=== PATIENT | female | born 1960 | race Caucasian/White ===

== ENCOUNTER 2019-06-09 05:11 | Inpatient (IN) ==
--- NOTE | 2019-05-26 13:52 | PAT Medication Instructions ---
Medication Instructions Date of Service May 26, 2019 Home Medications acetaminophen [Tylenol Arthritis Pain] 1,300 mg PO BID calcium carbonate [Tums] 200 mg PO UD PRN diphenhydramine-acetaminophen [Tylenol PM Extra Strength] 1 tab PO HS PRN ibuprofen 200 - 600 mg PO UD PRN meloxicam [Mobic] 7.5 mg PO DAILY ASK your surgeon for instructions ibuprofen 200 - 600 mg PO UD PRN meloxicam [Mobic] 7.5 mg PO DAILY DO NOT take the morning of surgery calcium carbonate [Tums] 200 mg PO UD PRN Take morning of surgery With a small sip of water, OTHERWISE NOTHING TO EAT OR DRINK AFTER MIDNIGHT: acetaminophen [Tylenol Arthritis Pain] 1,300 mg PO BID (if needed, may be taken up to four hours before surgery) Take evening before surgery acetaminophen [Tylenol Arthritis Pain] 1,300 mg PO BID calcium carbonate [Tums] 200 mg PO UD PRN (if needed) diphenhydramine-acetaminophen [Tylenol PM Extra Strength] 1 tab PO HS PRN (if needed) Other Notes If you have any questions please call us at [phone] or [phone] or [phone] or [phone]
--- NOTE | 2019-05-27 12:46 | Anesthesiology Consultation ---
Date of Service May 27, 2019 Assessment & Plan (1) Encounter for pre-operative examination: Chart Review Chart Review: Acceptable Risk for Surgery (pending surgeon-ordered PCP clearance) and Patient seen in Pre Admission Testing Teaching & Discussion Instructed NPO after midnight before surgery, except medications with 15 cc of water. Medication instructions provided according to the PAT guidelines. History Surgery Operation Date: 06/09/19 11:25 Proposed Procedures p Right Anterior Total Hip Arthroplasty - Ori Pittman DO Height/Weight Height: 5 ft 4 in Weight: 48.8 kg Allergies Allergy/AdvReac Type Severity Reaction Status Date / Time No Known Allergies Allergy Verified 05/21/19 11:03 Medications Home Medications Medication Instructions Recorded Confirmed Last Taken acetaminophen [Tylenol Arthritis 1,300 mg PO BID 05/21/19 05/21/19 Unknown Pain] calcium carbonate [Tums] 200 mg PO UD PRN 05/21/19 05/21/19 Unknown diphenhydramine-acetaminophen 1 tab PO HS PRN 05/21/19 05/21/19 Unknown [Tylenol PM Extra Strength] ibuprofen 200 - 600 mg PO UD PRN 05/21/19 05/21/19 Unknown meloxicam [Mobic] 7.5 mg PO DAILY 05/21/19 05/21/19 Unknown Past Medical History Medical History Arthritis Heartburn OCC, 3X PER MONTH AVERAGE, TUMS PRN History of bursitis R HIP History of kidney stones X1 EPISODE/PASSED ON OWN Nausea and vomiting after administration of anesthetic agent Exercise / Class Metabolic Activity II 4-5 Yardwork/Stairs/Walk up hill (Denies CP or SOB with 1 FOS, does daily at home) Past Family History Family History Daughter Family history of thyroid cancer Past Surgical History Surgical History History of dilation and curettage History of hernia surgery X2 History of microdiscectomy L4 History of tonsillectomy Past Anesthesia History No Hx of Anesthesia Complications and No Family Hx of Anesthesia Complications History of PONV History of PONV (with lumbar discectomy and D+C) and Hx of Motion Sickness Social History Smoking Status: Current every day smoker tobacco type: cigarettes Smoking cigarettes per day: LESS THAN 1 PPD/ ADVISED NPO Do You Dip or Chew Tobacco: No Hx Alcohol Use: No Hx Substance Use: No substance use type: does not use Review of Systems Pt denies any recent chest pain, shortness of breath, palpitations, cough, fever or URI. Physical Exam Vital Signs BP: 109/77 P: 81bpm SPO2: 95% RA T: 97.9 F R: 16 ENMT Mouth: no dental restorations, no chipped teeth and no loose teeth Thyromental Distance: > or= 3.5 Finger Breadths (3.5) Mallampati Class: I Neck normal visual inspection; neck extension not limited Respiratory normal respiratory effort Auscultation: lungs clear to auscultation bilaterally and + diminished lung sounds (Slightly, B/L) Cardiovascular Rate/Rhythm: regular rate and regular rhythm Heart Sounds: no murmur Vessels: no carotid bruit Testing Laboratory Results 05/27/19 12:56 05/27/19 12:56 PT 10.1 Seconds (9.0-12.0) 05/27/19 12:56 INR 1.0 (0.9-1.1) 05/27/19 12:56 APTT 27.8 Seconds (21.0-31.0) 05/27/19 12:56 Hemoglobin A1c 5.5 % (4.5-5.6) 05/27/19 12:56 Urine Color Yellow 05/27/19 12:56 Urine Appearance Clear (Clear) 05/27/19 12:56 Urine pH 5.0 (4.5-7.5) 05/27/19 12:56 Ur Specific Lyman 1.017 (1.000-1.030) 05/27/19 12:56 Urine Protein Negative (Negative) 05/27/19 12:56 Urine Glucose (UA) Negative (Negative) 05/27/19 12:56 Urine Ketones Trace (Negative) H 05/27/19 12:56 Urine Nitrite Negative (Negative) 05/27/19 12:56 Ur Leukocyte Esterase Negative (Negative) 05/27/19 12:56 Urine WBC (Auto) 0 /hpf (0-5) 05/27/19 12:56 Urine RBC (Auto) 0-4 /hpf (0-4) 05/27/19 12:56 U Hyaline Cast (Auto) 0 /lpf (0-5) 05/27/19 12:56 U Epithel Cells (Auto) 0-5 /lpf (0-5) 05/27/19 12:56 Urine Bacteria (Auto) Negative (Negative) 05/27/19 12:56 Blood Type O Positive 05/27/19 12:56 Antibody Screen NEGATIVE 05/27/19 12:56 Electrocardiogram Date: 05/27/19 Findings: + NSR @ (71bpm) Chest X-Ray Date: 05/27/19 Findings: + NAD
--- NOTE | 2019-05-27 13:28 | XRay Report ---
TWO VIEW CHEST CLINICAL HISTORY: Preoperative examination. FINDINGS: PA and lateral chest radiographs are obtained. No prior studies are available for compariso n at the time of dictation. The cardiomediastinal silhouette is unremarkable. The lungs are hyperinf lated and hyperlucent. There is increased retrosternal clear space and mild flattening of the diaphra gm. The appearance suggests obstructive physiology. No airspace consolidation or pleural effusion is identified. There is no pneumothorax. The bony thorax appears intact. Degenerative change is noted th roughout the thoracic spine. IMPRESSION: No active disease in the chest. ACT 112: Negative or not required by law. Electronically signed by: Gadiel Castro M.D. 05/27/2019 1:27 PM
[2019-05-27 13:54] LABS: Basophils # (auto) 0.03 K/uL (0-0.2); Basophils % (auto) 0.3 %; Eosinophils # (auto) 0.06 K/uL (0-0.5); Eosinophils % (auto) 0.7 %; Hematocrit (blood only) 42.5 % (37-47); Hemoglobin 14.8 g/dL (12.0-16.0); Immature Granulocytes # (auto) 0.04 K/uL (0.00-0.02); Immature Granulocytes % (auto) 0.5 %; Lymphocytes # (auto) 2.62 K/uL (1.2-3.4); Lymphocytes % (auto) 29.8 %; Mean Corpuscular Hemoglobin 32.2 pg (25-34); Mean Corpuscular Hgb Conc 34.8 g/dL (32-36); Mean Corpuscular Volume 92.4 fL (80-100); Mean Platelet Volume 9.5 fL (7.4-10.4); Monocytes # (auto) 0.42 K/uL (0.11-0.59); Monocytes % (auto) 4.8 %; Neutrophils # (auto) 5.63 K/uL (1.4-6.5); Neutrophils % (auto) 63.9 %; Platelet Count 387 K/uL (130-400); RDW Coefficient of Variation 13.3 % (11.5-14.5); RDW Standard Deviation 45.6 fL (36.4-46.3)
[2019-05-27 13:59] LABS: Appearance Urine Clear (Clear); Bacteria Urine Automated Negative (Negative); Bilirubin Urine Negative (Negative); Blood Urine Trace (Negative); Cast Urine Automated 0 /lpf (0-5); Color Urine Yellow; Epithelial Cell Urine Auto 0-5 /lpf (0-5); Glucose Urine UA Negative (Negative); Ketones Urine Trace (Negative); Leukocyte Esterase Urine Negative (Negative); Nitrite Urine Negative (Negative); Protein Urine Negative (Negative); RBC Urine Automated 0-4 /hpf (0-4); Specific Gravity Urine 1.017 (1.000-1.030); Urobilinogen Urine Negative (Negative); WBC Urine Automated 0 /hpf (0-5)
[2019-05-27 14:03] LABS: Partial Thromboplastin Time 27.8 Seconds (21.0-31.0); Prothrombin Time 10.1 Seconds (9.0-12.0)
[2019-05-27 14:10] LABS: Albumin Level 4.2 gm/dl (3.4-5.0); BUN Creatinine Ratio 26.5 (10-20); Calcium 9.8 mg/dl (8.5-10.1); Creatinine Clr Calc Pharmacy 66.7 ml/min; Est GFR (African American) 109.9; Est GFR (Non-African American) 94.8; Potassium 4.6 mmol/L (3.5-5.1)
[2019-05-27 14:15] LABS: Estimated Average Glucose 111 mg/dl; Hemoglobin A1C 5.5 % (4.5-5.6)
--- NOTE | 2019-05-27 16:11 | Electrocardiogram Report ---
Test Reason : Blood Pressure : / mmHG Vent. Rate : 071 BPM Atrial Rate : 071 BPM P-R Int : 144 ms QRS Dur : 090 ms QT Int : 388 ms P-R-T Axes : 079 072 073 degrees QTc Int : 421 ms Normal sinus rhythm Normal ECG No previous ECGs available Confirmed by Kj Huerta ([id number]) on 05/27/2019 4:11:36 PM Referred By: Ori Pittman Confirmed By:Kj Huerta
--- NOTE | 2019-06-08 22:32 | History & Physical Report ---
Date of Service June 08, 2019 Assessment & Plan (1) Degenerative joint disease of right hip: I have indicated the patient for right anterior total hip replacement. The risks, benefits and complications of surgery were explained to the patient which include but not limited to infection, acute blood loss, DVT/PE, injury to nerves, vessels, bone, soft tissue, arthrofibrosis, chronic pain, failure of the prosthesis, hip dislocation, leg length discrepancy, need for additional surgery, cardiac and pulmonary events and . The patient wished to proceed with surgery and informed consent was obtained at this time. We will plan for 81mg ASA BID post-operatively for DVT prophylaxis. Upon discharge the patient will be discharged home with home health services. Appropriate clearances by PCP were obtained. History of Present Illness Chief Complaint: Right hip pain/djd Primary Care Provider: Amador Rowe The patient is a 58 year old female who presents with complaints of severe right hip pain and DJD. The patient has failed outpatient conservative treatments to this point which included NSAIDS, PT and a home exercise/walking program, patient declined IA corticosteroid injection. The patient's pain and limited function have progressed to the point where they severely hinder their activities of daily living and they no longer tolerate exercise programs. They are requesting to proceed with total hip replacement surgery. Allergies Allergy/AdvReac Type Severity Reaction Status Date / Time No Known Allergies Allergy Verified 06/09/19 05:40 Home Medications Home Medications Medication Instructions Recorded Confirmed Type acetaminophen [Tylenol Arthritis 1,300 mg PO BID 05/21/19 06/09/19 History Pain] calcium carbonate [Tums] 200 mg PO UD PRN 05/21/19 06/09/19 History diphenhydramine-acetaminophen 1 tab PO HS PRN 05/21/19 06/09/19 History [Tylenol PM Extra Strength] ibuprofen 200 - 600 mg PO UD PRN 05/21/19 06/09/19 History meloxicam [Mobic] 7.5 mg PO DAILY 05/21/19 06/09/19 History Past Med/Surg History Medical History Arthritis Heartburn OCC, 3X PER MONTH AVERAGE, TUMS PRN History of bursitis R HIP History of kidney stones X1 EPISODE/PASSED ON OWN Surgical History History of dilation and curettage History of hernia surgery X2 History of microdiscectomy L4 History of tonsillectomy Nausea and vomiting after administration of anesthetic agent Family History Daughter Family history of thyroid cancer Social History Preferred Language: Arabic Communication Ability: Effective Cogeneration Operator Required: No Beliefs That Will Affect Care: None Current Living Situation: Alone Other Information That Helps Us Care for You: No Feels Safe at Home: Yes Smoking Status: Current every day smoker Tobacco Type: cigarettes ; Cigarettes Per Day: LESS THAN 1 PPD/ ADVISED NPO ; Do You Dip or Chew Tobacco: No ; Tobacco Cessation Education Requested by Patient: No Hx Alcohol Use: No Hx Substance Use: No Review of Systems Review of Systems: All systems reviewed & are unremarkable except as noted in HPI & below Constitutional: as per Subjective / HPI Physical Exam Physical Exam: RLE NVSI +EHL/FHL/TA/GS SILT grossly, +2 DP pulse, compartments soft NT, painful limited ROM of the hip, antalgic gait. Constitutional: WD/WN, vitals as above Eyes: PERRL, conjunctivae normal, anicteric sclerae ENMT: external ear and nose normal, oropharynx normal Neck: trachea midline, no thyromegaly Respiratory: normal respiratory effort, lungs clear to auscultation Cardiovascular: RRR, no murmur, no edema Gastrointestinal (Abdomen): normal bowel sounds, soft, nontender, no hepatosplenomegaly Musculoskeletal: no cyanosis or clubbing, extremities motor strength 5/5 Skin: no rashes, warm and dry Neurologic: patellar DTR's 2+ bilat, sensation intact Psychiatric: A+Ox3, euthymic affect Lymphatic: no cervical or axillary lymphadenopathy Results & Data Diagnostic Findings Multiple views of the hip demonstrates severe DJD with complete loss of the joint space. +osteophytes, +sclerosis, +subchondral cysts.
[~2019-06-09 05:11] MED LIST: GENERAL ORDER PROBLEM SCH; [UNRECOGNIZED DRUG - REMARK] SCH
[2019-06-09] MEDS ORDERED: TRANEXAMIC ACID 1,000 MG **IV Intra-op IV SCH (06:00)
[2019-06-09] MEDS ORDERED: CeleBREX 200 MG CAP PO SCH (06:00)
[2019-06-09] MEDS ORDERED: METOCLOPRAMIDE HCL 10 MG TABLET PO SCH (06:00)
[2019-06-09] MEDS ORDERED: dexAMETHasone 4 MG TAB PO SCH (06:00)
[2019-06-09] MEDS ORDERED: ACETAMINOPHEN 500 MG TAB PO SCH (06:00)
[2019-06-09] MEDS ORDERED: FAMOTIDINE 20 MG TAB PO SCH (06:00)
[2019-06-09] MEDS ORDERED: ROPIVACAINE 0.5% HCL/PF 150 MG, BUPIVACAINE 0.5% MPF 30 ML, EPINEPHrine 30MG/30ML (OR U... INFIL SCH (06:00)
[2019-06-09] MEDS ORDERED: GABAPENTIN 300 MG CAP PO SCH (06:00)
[2019-06-09] MEDS ORDERED: TRANEXAMIC ACID 1,000 MG **IV Pre-op IV SCH (06:00)
[2019-06-09] MEDS ORDERED: CEFAZOLIN 2000MG 2,000 MG/15 ML SYR IV SCH (06:00)
[2019-06-09] MEDS ORDERED: LR 500ML BOLUS, THEN 15ML/HR IV SCH (06:00)
[2019-06-09] MEDS ORDERED: CEFAZOLIN 2,000 MG/15 ML IV PUSH IV ONE (06:15)
[2019-06-09] MEDS ORDERED: BUPIVACAINE 0.5 % 5 MG/1 ML PF 10ML VIAL ONE (06:32)
[2019-06-09] MEDS ORDERED: LIDOCAINE HCL 2% 2 ML VIAL/AMP(20MG/ML) INFIL ONE (06:56)
[2019-06-09] MEDS ORDERED: PROPOFOL IV EMULSION 10 MG/ML 20 ML VIAL IV ONE ×2 (06:56→08:21)
[2019-06-09] MEDS ORDERED: fentaNYL citrate 100 MCG/2 ML VIAL ONE (06:56)
[2019-06-09] MEDS ORDERED: MIDAZOLAM HCL 1 MG/ML 2ML VIAL ONE (06:57)
[2019-06-09] MEDS ORDERED: ORTHO JOINT ANESTHETIC ONE (06:58)
[2019-06-09] MEDS ORDERED: BACITRACIN INJ 50,000 UNIT VIAL ONE (06:58)
--- NOTE | 2019-06-09 07:08 | History & Physical Bridge Note ---
Date of Service June 09, 2019 History & Physical Bridge Note I have examined the patient, reviewed the History & Physical and in the interval since the performance of the History & Physical I have noted the following changes of clinical significance: no changes noted
[2019-06-09] MEDS ORDERED: KETAMINE HCL INJ 50 MG/ML 10 ML VIAL ONE (07:52)
--- NOTE | 2019-06-09 08:56 | Post Operative Brief Note ---
Immediate Post Op Note v1 Date of Surgery June 09, 2019 Pre & Post Diagnosis Operation Date: 06/09/19 07:15 Pre-Op Diagnosis: Degenerative Joint Disease Right Hip Post-Op Diagnosis: Degenerative Joint Disease Right Hip I identified the patient and participated in the time-out.: Yes Procedure Operation Date: 06/09/19 07:15 Actual Procedures p Right Anterior Total Hip Arthroplasty(Right) - Ori Pittman DO Surgeon Ori Pittman DO Vehicle Window Tinter Faraz Mathur Estimated Blood Loss 100 Findings Consistent with Post-Op Diagnosis Fluids 1400 cc LR Specimens femoral head Anesthesia Type Spinal MAC Complications none Disposition Disposition: Recovery Room Overlapping Procedure I was present for: the critical portions of procedure. I was immediately available: during the entire case. Back up surgeon: was not required during procedure.
--- NOTE | 2019-06-09 09:07 | Operative Report ---
Post Operative Report Pre & Post Diagnosis Operation Date: 06/09/19 07:15 Pre-Op Diagnosis: Degenerative Joint Disease Right Hip Post-Op Diagnosis: Degenerative Joint Disease Right Hip I identified the patient and participated in the time-out.: Yes Procedure Operation Date: 06/09/19 07:15 Actual Procedures p Right Anterior Total Hip Arthroplasty(Right) - Ori Pittman DO Surgeon Ori Pittman DO Package Liner Faraz Mathur Estimated Blood Loss 100 Findings Consistent with Post-Op Diagnosis Fluids 1400 cc LR Specimens femoral head Drains none Anesthesia Type Spinal MAC Complications none Disposition Disposition: Recovery Room Indications The patient is a 58-year-old female who presents with severe progressive right hip DJD who has failed outpatient conservative treatments. I indicated the patient for a anterior total hip replacement and the risks and benefits were explained in detail which include but not limited to infection, bleeding, blood clot, damage to surrounding bone, nerves, vessels, soft tissue, hip dislocation, failure of the prosthesis, leg length discrepancy, need for additional surgery and . The patient agreed to proceed with replacement of the hip and informed consent was obtained. Appropriate clearances were obtained. Description of Procedure COMPONENTS USED: [employer] ([employer]ology hip system: Acetabulum size 48, femur size 5 standard offset, femoral head 32+0, liner 4832, acetabular screw 25 mm x 1. DESCRIPTION OF PROCEDURE: Following satisfactory spinal anesthesia, the patient was placed supine on the OR table. The left leg was placed in the well leg cordova and the right leg in the traction device. The right leg was prepared with ChloraPrep and draped sterilely. A surgical timeout was performed, patient identified and site kanu verified. Appropriate antibiotics were given. A standard anterior approach in the interval between the sartorius and tensor muscles was performed. Dissection was carried down through subcutaneous tissues. Electrocautery was utilized for hemostasis. Circumflex femoral vess els were identified, tied and ligated. The anterior capsular fat pad was removed and the capsulotomy was performed revealing the arthritic femoral neck and head. A femoral neck cut was made with reciprocating saw and the bone fragments removed. The acetabular self-retraining retractor was placed. Acetabular reaming was completed under fluoroscopic guidance, a 48 shell was impacted into an anatomic position and secured with a dome screw. Local anesthetic was placed and following irrigation, the polyethylene liner was placed. The femur was placed into position of external rotation, extension and adduction. Femoral canal was prepared up to the size 5 high offset. Trial reduction with a +0 neck length head showed good soft tissue tension, leg lengths restored, and good fit and fill of the proximal canal using fluoroscopic landmarks. The hip was dislocated. The trial component was removed. The final implant was placed. The hip was irrigated with sterile saline solution and reduced. A Betadine soak was performed. After 3 minutes, the hip was once more irrigated with copious sterile saline solution with bacitracin. Terra-incisional soft tissue was injected utilizing [employer] which includes a combination of Ropivicaine 0.5% 150mg, Bupivicaine 0.5%/Epinephrine 1:200,000 30ml, Toradol 30mg, Dexamethasone 4mg, Ketamine 10mg, Clonidine 100mcg and NSS 30ml solution. The capsule was then closed with 1-0 Vicryl interrupted figure of eight sutures. The fascia was closed with a running suture of #1 Vicryl, the subcutaneous tissues with 2-0 Vicryl and the skin with a running subcuticular stitch of 3-0 V-Loc. Dermabond prineo and a dry dressing were applied. The patient tolerated the procedure well and was transported to PACU in stable condition. Due to the complex nature of the procedure, the entire surgery was performed with the operational assistance of Carrillo andino PA-C. The reproductive healthcare assistant, under direct supervision, was involved in the actual performance of all aspects of the surgical procedure including patient positioning, hemostasis, tissue retraction, instrument management and wound closure. I attest to the content of the Intraoperative Record and any orders documented therein. Any exceptions are noted below.
[2019-06-09] MEDS ORDERED: ATROPINE SULFATE 0.1 MG/ML 10ML SYR IV PRN (09:10)
[2019-06-09] MEDS ORDERED: ONDANSETRON INJ 2 MG/ML 2 ML VIAL IV PRN ×2 (09:10→10:19)
[2019-06-09] MEDS ORDERED: fentaNYL citrate 100 MCG/2 ML VIAL IV PRN (09:10)
[2019-06-09] MEDS ORDERED: ePHEDrine sulfate 50 MG/ML AMP IV PRN (09:10)
--- NOTE | 2019-06-09 09:50 | Fluoroscopy Report ---
FL hip RT 1V HISTORY: 58 years-old Female RT ANTERIOR HIP right hip total joint arthroplasty COMPARISON: Pelvis and right hip radiographs of same day TECHNIQUE: 2 spot fluoroscopic images of the right hip were obtained utilizing 55.5 seconds fluorosco py time FINDINGS: Right hip total joint arthroplasty is in satisfactory positioning. Expected postsurgical soft tissue swelling and deep tissue air. No acute fracture or dislocation. Left hip osteoarthritis. Pelvic basin calcifications. IMPRESSION: Fluoroscopic assistance as above. Please see operative report for further details. ACT 112: Negative or not required by law. The above report was generated using voice recognition software. It may contain grammatical, syntax o r spelling errors. Electronically signed by: Michael Mcginnis M.D. 06/09/2019 9:49 AM
--- NOTE | 2019-06-09 09:50 | XRay Report ---
AP PELVIS, CROSSTABLE LATERAL RIGHT HIP History: Right total hip arthroplasty. Degenerative arthritis. Postop. FINDINGS: The patient is status post a right total hip arthroplasty. The hardware is intact. No fract ure or dislocation. IMPRESSION: Right total hip arthroplasty. No evidence for hardware complication ACT 112: Negative or not required by law. Electronically signed by: Ilir Mckeon M.D. 06/09/2019 9:49 AM
--- NOTE | 2019-06-09 09:53 | Anesthesiology Progress Note ---
Date of Service June 09, 2019 Anesthesia Post Procedure Vital Signs Vital Signs: Temp Pulse Resp BP Pulse Ox 06/09/19 09:45 36.4 C L 72 16 110/66 95 06/09/19 09:35 70 15 109/69 97 06/09/19 09:25 81 15 106/70 98 06/09/19 09:17 36.9 C 81 18 103/70 100 06/09/19 05:46 36.8 C 94 H 18 118/76 94 Pain Intensity Right Hip: Pain Intensity: 3 Transfer of Care Handoff Completed per policy Notes Mental Status: alert / awake / arousable and participated in evaluation Nausea / Vomiting: adequately controlled Pain: adequately controlled Airway Patency, RR, SpO2: stable & adequate BP & HR: stable & adequate Hydration State: stable & adequate Neuraxial Anesthesia: was administered and sensory block is resolving Anesthetic Complications: no major complications apparent and Pt Satisfied with anesthetic care
[2019-06-09] MEDS ORDERED: HYDROmorphone INJ 0.5 MG/0.5 ML SYR IV PRN (10:19)
[2019-06-09] MEDS ORDERED: METOCLOPRAMIDE HCL INJ 5 MG/ML 2 ML VIAL IV PRN (10:19)
[2019-06-09] MEDS ORDERED: OXYCODONE HCL IR 5 MG TAB (IMMEDIATE RELEASE) PO PRN (10:19)
[2019-06-09] MEDS ORDERED: MAGNESIUM HYDROXIDE SUSP 30 ML UDC PO PRN (10:19)
[2019-06-09] MEDS ORDERED: bisacodyL 10 MG SUPP PR PRN (10:19)
[2019-06-09] MEDS ORDERED: NALOXONE HCL 0.4 MG/1 ML VIAL/CARP IV PRN (10:19)
[2019-06-09] MEDS: SODIUM CHLORIDE 0.9% 1000ML 1,000 ML IV SCH ×2 (11:13→21:05)
[2019-06-09] MEDS: KETOROLAC TROMETHAMINE 15 MG/ML VIAL IV SCH ×3 (11:14→23:41)
[2019-06-09] MEDS: ACETAMINOPHEN 500 MG TAB PO SCH ×2 (13:20→21:07)
--- NOTE | 2019-06-09 14:54 | Orthopedic Progress Note ---
Date of Service June 09, 2019 Assessment & Plan (1) Degenerative joint disease of right hip: s/p Right anterior SHANNEN -ancef x 24 -DVT ppx: SCDs, TEDs, 81mg ASA BID -WBAT RLE -PT/OT -PO XR demonstrates well aligned well fixed prothesis without fracture/dislocation -am labs -DC planning Admission and Anticipated Discharge Date Admission Date: June 09, 2019 Subjective Post Operative Progress Note Patient seen sitting up in bed, comfortable, denies complaints, pain well controlled, no acute issues. Review of Systems Review of Systems: All systems reviewed & are unremarkable except as noted in HPI & below Constitutional: as per Subjective / HPI Physical Exam Physical Exam: RLE NVSI +EHL/FHL/TA/GS SILT grossly, +2 DP pulse, compartments soft NT, dressing cdi. Constitutional: WD/WN, vitals as above Results & Data ([facility]) Vital Signs (Past 12 Hours) Vital Signs Temp Pulse Resp BP Pulse Ox 06/09/19 13:05 96 H 16 111/75 91 06/09/19 12:08 94 H 16 114/85 95 06/09/19 11:05 84 16 120/85 96 06/09/19 10:31 85 16 114/80 93 06/09/19 10:05 36.3 C L 83 18 107/70 95 06/09/19 09:45 36.4 C L 72 16 110/66 95 06/09/19 09:35 70 15 109/69 97 06/09/19 09:25 81 15 106/70 98 06/09/19 09:17 36.9 C 81 18 103/70 100 06/09/19 05:46 36.8 C 94 H 18 118/76 94
[2019-06-09] MEDS: CEFAZOLIN 1000MG 1,000 MG/7.5 ML SYR IV SCH ×2 (15:34→23:41)
[2019-06-09] MEDS ORDERED: SENNA 8.6 MG TAB PO SCH (21:00)
[2019-06-09] MEDS: DOCUSATE SODIUM 100 MG CAP PO SCH (21:06)
[2019-06-10] MEDS: ACETAMINOPHEN 500 MG TAB PO SCH (05:40)
[2019-06-10] MEDS: KETOROLAC TROMETHAMINE 15 MG/ML VIAL IV SCH (05:40)
[2019-06-10 06:47] LABS: Basophils # (auto) 0.01 K/uL (0-0.2); Basophils % (auto) 0.1 %; Eosinophils # (auto) 0.02 K/uL (0-0.5); Eosinophils % (auto) 0.2 %; Hematocrit (blood only) 34.3 % (37-47); Hemoglobin 11.7 g/dL (12.0-16.0); Immature Granulocytes # (auto) 0.02 K/uL (0.00-0.02); Immature Granulocytes % (auto) 0.2 %; Lymphocytes # (auto) 2.09 K/uL (1.2-3.4); Mean Corpuscular Hemoglobin 31.4 pg (25-34); Mean Corpuscular Hgb Conc 34.1 g/dL (32-36); Mean Platelet Volume 8.9 fL (7.4-10.4); Monocytes # (auto) 0.95 K/uL (0.11-0.59); Monocytes % (auto) 7.3 %; Neutrophils % (auto) 76.2 %; Platelet Count 257 K/uL (130-400); RDW Standard Deviation 43.7 fL (36.4-46.3); Red Blood Count 3.73 M/uL (4.2-5.4); White Blood Count 13.09 K/uL (4.8-10.8)
[2019-06-10 07:22] LABS: BUN Creatinine Ratio 33.8 (10-20); Calcium 8.4 mg/dl (8.5-10.1); Est GFR (African American) 112.1; Est GFR (Non-African American) 96.7; Potassium 3.8 mmol/L (3.5-5.1)
--- NOTE | 2019-06-10 08:04 | Anesthesiology Progress Note ---
Date of Service June 10, 2019 Anesthesia Post Procedure Vital Signs Vital Signs: Temp Pulse Resp BP Pulse Ox 06/10/19 03:05 36.8 C 76 16 108/68 94 06/09/19 23:26 36.5 C 74 16 110/69 94 06/09/19 21:19 36.9 C 78 18 109/70 94 06/09/19 15:50 36.4 C L 93 H 18 109/75 95 06/09/19 13:05 96 H 16 111/75 91 06/09/19 12:08 94 H 16 114/85 95 06/09/19 11:05 84 16 120/85 96 06/09/19 10:31 85 16 114/80 93 06/09/19 10:05 36.3 C L 83 18 107/70 95 06/09/19 09:45 36.4 C L 72 16 110/66 95 06/09/19 09:35 70 15 109/69 97 06/09/19 09:25 81 15 106/70 98 06/09/19 09:17 36.9 C 81 18 103/70 100 Pain Intensity Right Hip: Pain Intensity: 7 Notes Mental Status: alert / awake / arousable and participated in evaluation Patient Amnestic to Procedure: Yes Nausea / Vomiting: adequately controlled Pain: adequately controlled Airway Patency, RR, SpO2: stable & adequate BP & HR: stable & adequate Hydration State: stable & adequate Neuraxial Anesthesia: was administered and sensory block resolved Anesthetic Complications: no major complications apparent and Pt Satisfied with anesthetic care
--- NOTE | 2019-06-10 08:21 | Orthopedic Progress Note ---
Date of Service June 10, 2019 Assessment & Plan (1) Degenerative joint disease of right hip: s/p Right anterior SHANNEN POD#1 -ancef x 24 -DVT ppx: SCDs, TEDs, 81mg ASA BID -WBAT RLE -PT/OT -PO XR demonstrates well aligned well fixed prothesis without fracture/dislocation -am labs - hgb 11.7, as above -DC planning - home with HH Admission and Anticipated Discharge Date Admission Date: June 09, 2019 Subjective Post Operative Progress Note Patient seen sitting up in bed, comfortable, denies complaints, pain well controlled, no acute issues. Denies F/C/N/V/SOB/CP Review of Systems Review of Systems: All systems reviewed & are unremarkable except as noted in HPI & below Constitutional: as per Subjective / HPI Physical Exam Physical Exam: RLE NVSI +EHL/FHL/TA/GS SILT grossly, +2 DP pulse, compartments soft NT, dressing cdi. Constitutional: WD/WN, vitals as above Results & Data ([facility]) Vital Signs (Past 12 Hours) Vital Signs Temp Pulse Pulse Resp BP Pulse Ox 06/10/19 07:45 36.5 C 77 13 113/79 96 06/10/19 03:05 36.8 C 76 16 108/68 94 06/09/19 23:26 36.5 C 74 16 110/69 94 06/09/19 21:19 36.9 C 78 18 109/70 94 Laboratory Results 06/10/19 06/10/19 Range/Units 06:29 06:29 WBC 13.09 H (4.8-10.8) K/uL RBC 3.73 L (4.2-5.4) M/uL Hgb 11.7 L (12.0-16.0) g/dL Hct 34.3 L (37-47) % MCV 92.0 (80-100) fL MCH 31.4 (25-34) pg MCHC 34.1 (32-36) g/dL RDW Std Deviation 43.7 (36.4-46.3) fL RDW Coeff of Anahy 13.0 (11.5-14.5) % Plt Count 257 (130-400) K/uL MPV 8.9 (7.4-10.4) fL Immature Gran % (Auto) 0.2 % Neut % (Auto) 76.2 % Lymph % (Auto) 16.0 % [place] % (Auto) 7.3 % Eos % (Auto) 0.2 % Baso % (Auto) 0.1 % Immature Gran # (Auto) 0.02 (0.00-0.02) K/uL Neut # (Auto) 10.00 H (1.4-6.5) K/uL Lymph # (Auto) 2.09 (1.2-3.4) K/uL [place] # (Auto) 0.95 H (0.11-0.59) K/uL Eos # (Auto) 0.02 (0-0.5) K/uL Baso # (Auto) 0.01 (0-0.2) K/uL Sodium 140 (136-145) mmol/L Potassium 3.8 (3.5-5.1) mmol/L Chloride 111 H (98-107) mmol/L Carbon Dioxide 26 (21-32) mmol/L Anion Gap 3.0 (3-11) BUN 22 H (7-18) mg/dl Creatinine 0.66 (0.6-1.2) mg/dl Est Cr Clr Drug Dosing 69.0 ml/min Est GFR ( Amer) 112.1 Est GFR (Non-Af Amer) 96.7 BUN/Creatinine Ratio 33.8 H (10-20) Glucose 101 H (70-99) mg/dl Calcium 8.4 L (8.5-10.1) mg/dl
[2019-06-10] MEDS: DOCUSATE SODIUM 100 MG CAP PO SCH (08:55)
[2019-06-10] MEDS ORDERED: ASPIRIN 81 MG ECTAB PO SCH (09:00)
[2019-06-10] MEDS ORDERED: MULTIVITAMIN TAB PO SCH (09:00)
--- NOTE | 2019-06-10 18:39 | Discharge Summary ---
Date of Service June 10, 2019 Admission HPI Per Admitting Provider The patient is a 58 year old female who presents with complaints of severe right hip pain and DJD. The patient has failed outpatient conservative treatments to this point which included NSAIDS, PT and a home exercise/walking program, patient declined IA corticosteroid injection. The patient's pain and limited function have progressed to the point where they severely hinder their activities of daily living and they no longer tolerate exercise programs. They are requesting to proceed with total hip replacement surgery. Principal Diagnosis Right anterior total hip replacement -right hip djd Discharge Exam RLE NVSI +EHL/FHL/TA/GS SILT grossly, +2 DP pulse, compartments soft NT, dressing cdi. Constitutional WD/WN, vitals as above Discharge Data Allergies Allergy/AdvReac Type Severity Reaction Status Date / Time No Known Allergies Allergy Verified 06/09/19 05:40 Consultations 06/10/19 08:00 Consult Case Management - Discharge Planning Routine Procedures Performed Operation Date: 06/09/19 07:15 Actual Procedures p Right Anterior Total Hip Arthroplasty(Right) - Ori Pittman DO Ordered Studies 06/09/19 07:15 FL fluoroscopy <1hr Routine FL hip RT 1V Routine Hospital Course (1) Degenerative joint disease of right hip: The patient is a 58 -year-old female who presents with long standing history of severe right hip DJD and failed outpatient conservative treatments. The patient's symptoms have progressed to the point where it has been difficult to perform even normal activities of daily living. I indicated the patient for a right anterior total hip arthroplasty, the risks, benefits and complications of the procedure include but not limited to infection, bleeding, damage to bone, nerves, vessels, surrounding soft tissue, may develop blood clots, loss of function, leg length discrepancy, dislocation, failure of the components, loosening of the components, the need for additional surgery and . The patient wished to proceed with surgery at this time and informed consent was obtained. Hospital Course: On 06/09/19 the patient was taken to the operating room, adequate anesthesia administered and underwent a right anterior total hip arthroplasty. The patient tolerated the procedure well and was taken to the PACU in stable condition. Post-operatively the patient was started on a DVT ppx medication and given appropriate IV antibiotics. Consults were placed to physical therapy, occupational therapy and case management. On POD#1, the patient did well overni ght and their pain was well controlled. Labs were drawn and the Hgb was 11.7. The patient progressed well with PT. Dressings were changed at this time and the incision was clean, dry and intact. The patients hospital stay was relatively uneventful and they were deemed stable by the orthopedic team and consultants to be discharged home with on 06/10/19. Discharge Instructions: Upon discharge the patient may weight bear as tolerates through their operative extremity. They were instructed to keep the incision clean and dry at all times. The patient may shower but should not submerge the incision, avoid bathing, pools and hot tubes. The patient was given a script for pain medication and should take as instructed. The patient was given a script for DVT ppx 81mg ASA BID and should take as directed. The patient was instructed to not drive or travel for long distances until cleared to do so. If the patient develops any symptoms of fevers, chills, nausea, vomiting, increased redness, swelling, pain or drainage from the surgical site, they should notify the office and/or proceed to the nearest emergency room. The patient should follow up in 10-14 days after surgery for their routine post-operative follow-up appointment and should call the office to confirm the date and time. s/p Right anterior SHANNEN POD#1 -ancef x 24 -DVT ppx: SCDs, TEDs, 81mg ASA BID -WBAT RLE -PT/OT -PO XR demonstrates well aligned well fixed prothesis without fracture/dislocation -am labs - hgb 11.7, as above -DC planning - home with Total Time Total Time Spent Total Time Spent (In Minutes): 30 minutes Discharge Plan Discharge Items Patient Disposition: Home - Home Health Services Reason For Visit: Right Hip Osteoarthritis Discharge Diagnosis: Right anterior total hip replacement -Right hip DJD Condition on Discharge: Good Activity: Per Instructions section Lifting: Wait until after follow-up appointment Bathing: Keep incision dry Bathing Comment: No bathing, pools or hot tubs Sexual Activity: Wait until after follow-up appointment Exercise/Sports: Wait until after follow-up appointment Driving/Machine Use: No driving Weightbearing: Full weightbearing Non-emergency contact: Primary Care Provider and Surgeon Call non-emergency contact if: you have any medication questions, your symptoms worsen, your pain is not controlled, your pain is worsening, your pain is unusual for you, your pain is concerning for you, you have a fever, your temperature is above 101, your wound has increased redness, your wound has increased drainage and your wound pain has increased Follow-up/Referrals: Amador Rowe CRNP [Primary Care Provider] - Diet: Regular Addtl Attending Provider Instructions: ACTIVITY RECOMMENDATIONS: SELF CARE INSTRUCTIONS AFTER TOTAL HIP REPLACEMENT : Direct Anterior Approach Until the incision and soft tissues around your hip have healed, there is a possibility that the hip prosthesis could dislocate. A. Hip flexion ( Up & Down out of chair or steps ) may be difficult. This is normal. B. Numbness in front of the thigh is also normal for a few weeks. C. Use hand rails when walking on stairs. D. Wear low heeled shoes with non-slip soles. E. Be sure that your floors are free of things that could trip you - throw rug s, electrical cords, small objects. Avoid wet and waxed floors, especially with crutches and canes. F. Try to walk several times a day with rest periods between. G. Continue with all the exercises taught to you in the hospital. Again, make walking a part of your daily routine. SPECIAL CARE INSTRUCTIONS: VERY IMPORTANT TO READ AND REVIEW A. You may still be at risk for phlebitis and blood clots. 1. Wear surgical stockings (DOLORES hose) for 2 weeks after surgery to improve circulation and reduce swelling. 2. Take Aspirin 81mg twice daily for 4 weeks or as directed by your doctor. This is your blood thinner. 3. High risk patients may be prescribed a stronger blood thinner if necessary. 4. If you are on Coumadin normally, your family doctor/solutions engineer should monitor your blood work. Expect a phone call the day of or the day after bloodwork is drawn to adjust your dosage. B. You must take antibiotics before having dental work, bladder, bowel and other surgery. Your doctor will provide you with a permanent card to carry describing precautions. C. Call [facility] if you have a fever, redness or swelling around the incision, cloudy drainage from incision, or sudden increase in pain in your hip, not relieved by your regular pain medication. D. Please call the office at if you have any concerns or questions about your operation or recovery. * YOU MAY SHOWER, NO TUB BATHS UNTIL CLEARED BY YOUR DOCTOR. - Keep an extra close eye on the top portion of your incision. Be sure to keep clean & dry. * WEAR DOLORES HOSE 20 HOURS PER DAY FOR 2 WEEKS. * YOU MAY PROGRESS FROM A WALKER, TO A CANE, TO INDEPENDENT AT YOUR OWN PACE. * MOST PATIENTS WILL HAVE HOME NURSING FOR THERAPY. IF YOU DECIDE TO DO OUTPATIENT PHYSICAL THERAPY, PLEASE SCHEDULE THIS 3 TIMES PER WEEK. * DERMABOND Prineo- This is a mesh tape dressing that is covered with glue. It should remain in place until the incision is properly healed, usually 10-14 days. This dressing is designed to naturally slough off. You may trim the excess mesh tape as it peels off. Incision may be briefly wet in a shower. Dry immediately by blotting with a clean, dry towel. Do not bath or swim until instructed by your doctor. Do not scratch, rub, or pick at the dressing. Do not apply any topical ointments or lotions until dressing is completely removed and/or instructed by your doctor. There may be a small piece of suture material at one end of your incision. Do not pull or trim this. If it is bothersome or catching on clothing, you may cover it with a band-aid. FOLLOW UP VISIT: If appointment is not already scheduled: Please call [facility] to make a follow-up appointment for 2 weeks after your surgery at . Pending Studies at Discharge: No Stand-Alone Forms: [facility] [employer], Opioid Pain Management, Smoking Cessation Medications and DC Order Prescriptions: New celecoxib [Celebrex] 200 mg Capsule 200 mg PO BID PRN (Reason: pain/inflammation) Qty: 28 RF: 0 aspirin [Ecotrin Low Strength] 81 mg Tablet,Delayed Release (Dr/Ec) 81 mg PO BID Qty: 56 RF: 0 acetaminophen 500 mg Tablet 1,000 mg PO Q8 PRN (Reason: pain/fevers) Qty: 90 RF: 0 oxycodone 5 mg Tablet 5 mg PO Q6H PRN (Reason: pain) Qty: 30 RF: 0 sennosides [Senokot] 8.6 mg Tablet 17.2 mg PO HS PRN (Reason: constipation) Qty: 28 RF: 0 Continued calcium carbonate [Tums] 200 mg calcium (500 mg) Tablet,Chewable 200 mg PO UD PRN (Reason: Heartburn) RF: 0 Discontinued acetaminophen [Tylenol Arthritis Pain] 650 mg Tablet Extended Release 1,300 mg PO BID RF: 0 meloxicam [Mobic] 7.5 mg Tablet 7.5 mg PO DAILY RF: 0 diphenhydramine-acetaminophen [Tylenol PM Extra Strength] 25-500 mg Tablet 1 tab PO HS PRN (Reason: Sleep) RF: 0 ibuprofen 200 mg Tablet 200 - 600 mg PO UD PRN (Reason: Pain) RF: 0 Discharge Orders: Discharge Order (Routine); Ordered 06/10/19 Ordered By: Ori Palafox/Other Patient Handouts: Surgery Prevent DVT After, Quit Smoking Plan, Quit Smoking Get Support, Withdrawal Smoking [place], Smoke Free Stay, Smoking Health Effects, Smoke Free Benefits Admission Data Admit Date/Time: 06/09/19 09:21 Attending Provider: Ori Pittman Admit Provider: Ori Pittman Primary Care Provider: Amador Rowe Other Interventions: Discharge Summary Assessment (RN) Last Done: 06/10/19 11:14 DC Date/Time DO NOT enter until pt leaves facility: 06/10/19 13:35
[2019-06-10] MEDS ORDERED: CeleBREX 200 MG CAP PO SCH (21:00)
== END 2019-06-10 13:35 | disposition home health service (06) | DRG 470 ==
LOC: ASU 05:11 → 3E 09:21